=== PATIENT | male | born 1995 | race Caucasian/White ===

== ENCOUNTER 2024-04-11 14:46 | Emergency (ER) | payer MEDICAID ==
[~2024-04-11] VITALS: Ht 188 cm; Wt 98.0 kg
[2024-04-11 14:55] VITALS: O2SAT 97
[2024-04-11] MEDS: KETOROLAC 30MG/ML VIAL IM ONE (16:32)
[2024-04-11] MEDS ORDERED: IBUP-2030 MT (16:34)
[2024-04-11 16:56] VITALS: TEMP 98.7
[2024-04-11 16:57] VITALS: BP 130/65; PULSE 90; RESP 16
[2024-04-11] MEDS: HYDROCODONE/ACETAMINOPHEN 5/325MG TABLET PO ONE (16:57)
== END 2024-04-11 17:01 | disposition home or self-care (01) ==
LOC: ER 14:46
DX: S80.02XA Contusion of left knee, initial encounter (principal); M25.512 Pain in left shoulder; X58.XXXA Exposure to other specified factors, initial encounter; Y93.89 Activity, other specified; Y92.89 Other specified places as the place of occurrence of the external cause; Y99.8 Other external cause status
CPT/HCPCS: 73030; 73560; 99284; J1885